=== PATIENT | female | born 1980 | race Two or more races ===

== ENCOUNTER 2021-09-03 18:49 | Emergency (ER) | payer BC ==
[~2021-09-03] VITALS: Ht 152.4 cm; Wt 54.4 kg
[2021-09-03] MEDS ORDERED: MUPIROCIN15 GM TOP (19:28)
== END 2021-09-03 19:45 | disposition home or self-care (01) ==
LOC: ER 18:49
DX: S80.862A Insect bite (nonvenomous), left lower leg, initial encounter (principal)